=== PATIENT | male | born 1930 | race Caucasian/White ===

== ENCOUNTER → 2017-06-11 | Outpatient (CLI) | payer OTHER ==
[~2017-06-11] MED LIST: ASPI81CH2 PO; BISO5TAB3 PO; CHOL1000 PO; CLX/20 PO; DUTACAP PO; FLNIN/ NAE; LSX40 PO; SIMV-151 PO
[2017-06-11 08:54] LABS: BASO % 0.2 %; BASO ABS # 0.02 K/uL (0-0.2); COMPLETE YES; EOS % 3.4 %; HEMATOCRIT 47.7 % (42-52); IG% 0.3 %; LYMPH % 23.1 %; LYMPH ABS # 2.09 K/uL (1.2-3.4); MEAN CELL VOLUME 98.4 fL (80-100); MEAN CORPUSCULAR HEMOGLOBIN 31.8 pg (25-34); MEAN CORPUSCULAR HGB CONC 32.3 g/dl (32-36); MEAN PLATELET VOLUME 9.6 fL (7.4-10.4); MONO % 13.7 %; NEUT % 59.3 %; PLATELET COUNT 228 K/uL (130-400); RED BLOOD COUNT 4.85 M/uL (4.7-6.1); WHITE BLOOD COUNT 9.06 K/uL (4.8-10.8)
[2017-06-11 09:25] LABS: BLOOD UREA NITROGEN 20 mg/dl (7-18); BUN/CREATININE RATIO 21.1 (10-20); CALCIUM 8.7 mg/dl (8.5-10.1); CARBON DIOXIDE 32 mmol/L (21-32); CHLORIDE 102 mmol/L (98-107); CREATININE 0.94 mg/dl (0.60-1.40); GLUCOSE 102 mg/dl (70-99); SODIUM 139 mmol/L (136-145)
== END | disposition home or self-care (01) ==
LOC: C.LABOUTLO 08:26
PROVIDERS: ATTEND Internal Medicine
DX: I25.10 Atherosclerotic heart disease of native coronary artery without angina pectoris (principal)

== ENCOUNTER → 2017-10-20 | Outpatient (CLI) | payer OTHER ==
[~2017-10-20] MED LIST changes: -BISO5TAB3 PO; +COEN1CAP28 PO; +DOXY100C76 PO; +DUTA0.5C PO; -DUTACAP PO; +ERGO500037 PO; +HORS300C PO; +IMIQ1CRE5 TOP; -SIMV-151 PO; +SPIR25TA PO; +SULF800T23 PO; +TAMS0.4C38 PO; +VITACAP26
[2017-10-20 09:23] LABS: HEMATOCRIT 42.1 % (42-52); HEMOGLOBIN 13.6 g/dL (14.0-18.0); MEAN CELL VOLUME 94.4 fL (80-100); MEAN CORPUSCULAR HEMOGLOBIN 30.5 pg (25-34); MEAN CORPUSCULAR HGB CONC 32.3 g/dl (32-36); MEAN PLATELET VOLUME 9.8 fL (7.4-10.4); PLATELET COUNT 284 K/uL (130-400); RED CELL DISTRIBUTION WIDTH CV 13.2 % (11.5-14.5); RED CELL DISTRIBUTION WIDTH SD 45.8 fL (36.4-46.3); WHITE BLOOD COUNT 11.53 K/uL (4.8-10.8)
[2017-10-20 09:24] LABS: BLOOD UREA NITROGEN 15 mg/dl (7-18); CALCIUM 8.9 mg/dl (8.5-10.1); CARBON DIOXIDE 28 mmol/L (21-32); CREATININE 0.95 mg/dl (0.60-1.40); GLUCOSE 108 mg/dl (70-99); POTASSIUM 3.9 mmol/L (3.5-5.1); SODIUM 135 mmol/L (136-145)
== END | disposition home or self-care (01) ==
LOC: C.LABOUTLO 08:27
PROVIDERS: ATTEND Internal Medicine
DX: I10 Essential (primary) hypertension (principal); R60.9 Edema, unspecified

== ENCOUNTER 2018-01-27 13:59 | Emergency (ER) | payer OTHER ==
[~2018-01-27] VITALS: Ht 177.8 cm; Wt 107.0 kg
[2018-01-27 14:04] VITALS: Ht 177.8 cm; Wt 107.0 kg
[2018-01-27] MEDS ORDERED: OPTIRAY 320 IV PRN (14:30)
[2018-01-27 14:57] LABS: BASO % 0.2 %; BASO ABS # 0.03 K/uL (0-0.2); EOS % 3.6 %; EOS ABS # 0.54 K/uL (0-0.5); HEMATOCRIT 46.8 % (42-52); HEMOGLOBIN 15.5 g/dL (14.0-18.0); IG# 0.07 K/uL (0.00-0.02); LYMPH % 28.9 %; LYMPH ABS # 4.37 K/uL (1.2-3.4); MEAN CELL VOLUME 88.1 fL (80-100); MEAN CORPUSCULAR HEMOGLOBIN 29.2 pg (25-34); MEAN CORPUSCULAR HGB CONC 33.1 g/dl (32-36); MEAN PLATELET VOLUME 9.3 fL (7.4-10.4); MONO % 8.5 %; MONO ABS # 1.29 K/uL (0.11-0.59); NEUT % 58.3 %; PLATELET COUNT 296 K/uL (130-400); RED CELL DISTRIBUTION WIDTH CV 17.2 % (11.5-14.5); RED CELL DISTRIBUTION WIDTH SD 54.9 fL (36.4-46.3)
[2018-01-27] MEDS ORDERED: ALUM-30 PO (15:00)
[2018-01-27] MEDS ORDERED: KETO2GEL2 TOP (15:00)
[2018-01-27 15:07] LABS: PTT PATIENT 27.7 SECONDS (21.0-31.0)
[2018-01-27 15:24] LABS: ALBUMIN 2.8 gm/dl (3.4-5.0); ALT/SGPT 30 U/L (12-78); AST/SGOT 21 U/L (15-37); BLOOD UREA NITROGEN 21 mg/dl (7-18); CALCIUM 8.8 mg/dl (8.5-10.1); CARBON DIOXIDE 29 mmol/L (21-32); CREATININE 1.31 mg/dl (0.60-1.40); GLUCOSE 120 mg/dl (70-99); POTASSIUM 4.1 mmol/L (3.5-5.1); SODIUM 134 mmol/L (136-145)
[2018-01-27 15:26] LABS: ALKALINE PHOSPHATASE 100 U/L (45-117); TOTAL PROTEIN 8.8 gm/dl (6.4-8.2)
--- NOTE | 2018-01-27 16:10 | DIAGNOSTIC IMAGING REPORT ---
SOFT TISSUE NECK WITH CLINICAL HISTORY: 87 years-old Male presenting with right maxillary and right nasal swelling. h/o of cellulitis, CA. TECHNIQUE: Multidetector CT of the neck was performed after the administration of intravenous contrast. IV contrast: 117 mL of Optiray 320. A dose lowering technique was used consistent with the principles of ALARA (as low as reasonably achievable). COMPARISON: None. CT DOSE (mGy.cm): The estimated cumulative dose is 646.38 mGy.cm. FINDINGS: Site Auditor topogram: Median sternotomy wires noted. The patient is edentulous. 1.9 cm cystic lesion in the subcutaneous tissue of the left anterior neck. Soft tissue swelling and infiltration overlying the right aspect of the nares. There is a low-density ill-defined 1.8 cm collection in the superficial soft tissue of the right naris. There is extensive surrounding inflammatory change. There is no associated osseous erosion of the piriform aperture. Significant mucosal thickening in the left frontal sinus. No osseous sclerosis or erosion. Paranasal sinuses and mastoid air cells otherwise clear. Middle ears clear. Multiple teeth are absent with dental caries evident. Periapical lucency at the right maxillary lateral incisor. No suspicious nodular enhancement along the airway. Nasopharynx, oropharynx, hypopharynx, and larynx patent. Piriform sinuses and vallecula a symmetric. Amalgam with resulting streak artifact degrades evaluation of the oral cavity. Vasculature patent. Atherosclerosis noted without significant narrowing. No lymphadenopathy. Limited intracranial evaluation within normal limits. Advanced degenerative changes of the cervical spine with multilevel neural foraminal narrowing. Lung apices clear. IMPRESSION: 1. Early abscess formation in the subcutaneous tissue of the right nares. 2. No lymphadenopathy. 3. Left frontal sinus mucosal thickening, nonspecific. No CT evidence of acute or chronic sinusitis. 4. Endodontic and periodontal disease. 5. Cystic lesion in the superficial soft tissues of the left anterior neck. Since nonspecific and may represent an epidermal inclusion cyst/sebaceous cyst or lymphangioma. The superficial location suggests against a thyroglossal duct cyst. Electronically signed by: Jose Ramon Booth M.D. 01/27/2018 4:09 PM Dictated Date/Time: 01/27/2018 3:59 PM
[2018-01-27] MEDS ORDERED: LIDOCAINE/EPINEPHRINE 1% 20 ML VIAL INFIL ONE (16:45)
[2018-01-27] MEDS ORDERED: LIDO/EPINEPHRINE/SOD BICARB 20 ML VIAL ONE (17:14)
[2018-01-27] MEDS ORDERED: LIDOCAINE 1% BUFFERED INJ 5 ML VIAL INFIL ONE (17:15)
[2018-01-27] MEDS ORDERED: CLINDAMYCIN 600 MG/54 ML D5W IV ONE (17:45)
[2018-01-27] MEDS ORDERED: CLIN150C PO (18:17)
--- NOTE | 2018-01-27 18:35 | EMERGENCY ROOM VISIT NOTE ---
History Report prepared by Orlin: Gregg Jacobs Under the Supervision of: Dr. Nehemias Rodriguez M.D. First contact with patient: 14:06 Chief Complaint: FACIAL PAIN/INJURY Stated Complaint: EYE AND FACIAL INFECTION PER [facility] History of Present Illness The patient is an 87 year old male who presents to the Emergency Room with complaints of constant swelling of the right side of the face beginning earlier today. The patient was sent here from [facility] because the right side of his face was swollen. The patient's [id number] states she received a call today stating the patient has been experiencing pink eye for a while, and it was clearing up. She reports the nurses noticed the swelling today and sent him to the ED for evaluation. 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 The patient states he feels baseline. He reports the swelling in his legs is chronic, and he does not wear the wrappings like he is supposed to. He states he is having mild changes to the vision of his left eye. The patient notes he does take aspirin, but that is all for blood thinners. Pt denies LOC, headache, fevers, chills, diaphoresis, neck pain, chest pain, breathing difficulties, nausea, vomiting, abdominal pain, back pain, melena, hematochezia, urinary symptoms, numbness, weakness, lymphadenopathy, rash, hearing changes, changes in appetite, biting his tongue, or other complaints. Source of History: patient, family ([id number]) Onset: this morning Position: other (right side of the face) Quality: other (swelling) Timing: constant Review of Systems See HPI for pertinent positives and negatives. A total of ten systems were reviewed and were otherwise negative. Past Medical & Surgical Medical Problems: (1) Arthritis (2) Heart disease (3) High cholesterol (4) History of open heart surgery (5) Pneumonia (6) Squamous cell carcinoma Surgical Problems: (1) H/O knee surgery (2) History of back surgery (3) History of cholecystectomy Family History Cancer Heart disease Hypertension Social History Smoking Status: Never Smoker Alcohol Use: none Drug Use: none Marital Status: Housing Status: assisted living Occupation Status: retired Current/Historical Medications Scheduled Aspirin (Aspirin), 81 MG PO DAILY Cholecalciferol (Vitamin D3), 5,000 INTER.UNIT PO DAILY Citalopram (Citalopram Hydrobromide), 20 MG PO DAILY Clindamycin Hcl (Cleocin), 150 MG PO QID Coenzyme Q10 (Ubidecarenone) (Co Q10), 1 CAP PO TID Dutasteride (Avodart), 1 CAP PO DAILY Furosemide (Furosemide), 40 MG PO DAILY Horse [place]ons (Aesculus Hippo (Horse Lyons), PO BID Ketoconazole (Topical) (Xolegel), 1 APPLN TOP DAILY Tamsulosin Hcl (Flomax), 1 CAP PO DAILY Scheduled PRN Alum & Mag Hydrox-Simethicone (Mylanta), 30 ML PO Q4H PRN for Indigestion Miscellaneous Medications Spironolactone (Aldactone), 25 MG PO Vitamins C & E (Vitamin C) Allergies Coded Allergies: Penicillin V (Verified Allergy, Intermediate, RASH, 01/27/18) Physical Exam Vital Signs Date Time Temp Pulse Resp B/P (MAP) Pulse Ox O2 Delivery O2 Flow Rate FiO2 01/27/18 17:50 80 18 127/71 96 Room Air 01/27/18 15:59 90 18 147/70 98 Room Air 01/27/18 14:04 36.7 93 18 117/69 93 Room Air Physical Exam GENERAL: Awake, alert, well-appearing, in no distress HENT: Normocephalic, atraumatic. Moderate swelling to the right side of the nose and right orbital area. Swelling does partially occlude the right naris. No drainage from the right nasolacrimal duct or obvious swelling. Oropharynx shows poor dentition and bleeding form the right upper premolar, otherwise unremarkable. EYES: Minimal conjunctival injection of the right eye. Sclera non-icteric. NECK: Supple. No nuchal rigidity. FROM. Small subcutaneous mass in the left anterior neck. It appears consistent with a sebaceous cyst. RESPIRATORY: Clear to auscultation. No wheezes. No rales. Normal respiratory effort. CARDIAC: Mildly elevated but not tachycardic rate. Normal rhythm. No murmurs. No rubs. Extremities warm and well perfused. Pulses equal. No JVD. GI: Soft, non-distended. No tenderness to palpation. No rebound or guarding. No masses. RECTAL: Deferred. MUSCULOSKELETAL: Atraumatic. Chest examination reveals no tenderness. The back is symmetrical on inspection without obvious abnormality. There is no CVA tenderness to palpation. No joint edema. LOWER EXTREMITIES: Calves are equal size bilaterally and non-tender. No edema. No discoloration. NEURO: Normal sensorium. No sensory or motor deficits noted. SKIN: No rash or jaundice noted. Medical Decision & Procedures ER Provider Diagnostic Interpretation: Radiology results as stated below per my review and radiologist interpretation SOFT TISSUE NECK WITH CLINICAL HISTORY: 87 years-old Male presenting with right maxillary and right nasal swelling. h/o of cellulitis, CA. TECHNIQUE: Multidetector CT of the neck was performed after the administration of intravenous contrast. IV contrast: 117 mL of Optiray 320. A dose lowering technique was used consistent with the principles of ALARA (as low as reasonably achievable). COMPARISON: None. CT DOSE (mGy.cm): The estimated cumulative dose is 646.38 mGy.cm. FINDINGS: Class A Regional Truck Driver topogram: Median sternotomy wires noted. The patient is edentulous. 1.9 cm cystic lesion in the subcutaneous tissue of the left anterior neck. Soft tissue swelling and infiltration overlying the right aspect of the nares. There is a low-density ill-defined 1.8 cm collection in the superficial soft tissue of the right naris. There is extensive surrounding inflammatory change. There is no associated osseous erosion of the piriform aperture. Significant mucosal thickening in the left frontal sinus. No osseous sclerosis or erosion. Paranasal sinuses and mastoid air cells otherwise clear. Middle ears clear. Multiple teeth are absent with dental caries evident. Periapical lucency at the right maxillary lateral incisor. No suspicious nodular enhancement along the airway. Nasopharynx, oropharynx, hypopharynx, and larynx patent. Piriform sinuses and vallecula a symmetric. Amalgam with resulting streak artifact degrades evaluation of the oral cavity. Vasculature patent. Atherosclerosis noted without significant narrowing. No lymphadenopathy. Limited intracranial evaluation within normal limits. Advanced degenerative changes of the cervical spine with multilevel neural foraminal narrowing. Lung apices clear. IMPRESSION: 1. Early abscess formation in the subcutaneous tissue of the right nares. 2. No lymphadenopathy. 3. Left frontal sinus mucosal thickening, nonspecific. No CT evidence of acute or chronic sinusitis. 4. Endodontic and periodontal disease. 5. Cystic lesion in the superficial soft tissues of the left anterior neck. Since nonspecific and may represent an epidermal inclusion cyst/sebaceous cyst or lymphangioma. The superficial location suggests against a thyroglossal duct cyst. Electronically signed by: Jose Ramon Booth M.D. 01/27/2018 4:09 PM Dictated Date/Time: 01/27/2018 3:59 PM Laboratory Results 01/27/18 14:45 Red Blood Count 5.31, Mean Corpuscular Volume 88.1, Mean Corpuscular Hemoglobin 29.2, Mean Corpuscular Hemoglobin Concent 33.1, Mean Platelet Volume 9.3, Neutrophils (%) (Auto) 58.3, Lymphocytes (%) (Auto) 28.9, Monocytes (%) (Auto) 8.5, Eosinophils (%) (Auto) 3.6, Basophils (%) (Auto) 0.2, Neutrophils # (Auto) 8.80, Lymphocytes # (Auto) 4.37, Monocytes # (Auto) 1.29, Eosinophils # (Auto) 0.54, Basophils # (Auto) 0.03 01/27/18 14:45 Test 01/27/18 14:34 01/27/18 14:45 Urine Color YELLOW Urine Appearance CLEAR (CLEAR) Urine pH 6.0 (4.5-7.5) Urine Specific [place] 1.018 (1.000-1.030) Urine Protein NEG (NEG) Urine Glucose (UA) NEG (NEG) Urine Ketones NEG (NEG) Urine Occult Blood NEG (NEG) Urine Nitrite NEG (NEG) Urine Bilirubin NEG (NEG) Urine Urobilinogen NEG (NEG) Urine Leukocyte Esterase SMALL (NEG) Urine WBC (Auto) 1-5 /hpf (0-5) Urine RBC (Auto) 5-10 /hpf (0-4) Urine Hyaline Casts (Auto) 0 /lpf (0-5) Urine Epithelial Cells (Auto) 10-20 /lpf (0-5) Urine Bacteria (Auto) NEG (NEG) White Blood Count 15.10 K/uL (4.8-10.8) Red Blood Count 5.31 M/uL (4.7-6.1) Hemoglobin 15.5 g/dL (14.0-18.0) Hematocrit 46.8 % (42-52) Mean Corpuscular Volume 88.1 fL (80-100) Mean Corpuscular Hemoglobin 29.2 pg (25-34) Mean Corpuscular Hemoglobin Concent 33.1 g/dl (32-36) Platelet Count 296 K/uL (130-400) Mean Platelet Volume 9.3 fL (7.4-10.4) Neutrophils (%) (Auto) 58.3 % Lymphocytes (%) (Auto) 28.9 % Monocytes (%) (Auto) 8.5 % Eosinophils (%) (Auto) 3.6 % Basophils (%) (Auto) 0.2 % Neutrophils # (Auto) 8.80 K/uL (1.4-6.5) Lymphocytes # (Auto) 4.37 K/uL (1.2-3.4) Monocytes # (Auto) 1.29 K/uL (0.11-0.59) Eosinophils # (Auto) 0.54 K/uL (0-0.5) Basophils # (Auto) 0.03 K/uL (0-0.2) RDW Standard Deviation 54.9 fL (36.4-46.3) RDW Coefficient of Variation 17.2 % (11.5-14.5) Immature Granulocyte % (Auto) 0.5 % Immature Granulocyte # (Auto) 0.07 K/uL (0.00-0.02) Prothrombin Time 10.6 SECONDS (9.0-12.0) Prothromb Time International Ratio 1.0 (0.9-1.1) Activated Partial Thromboplast Time 27.7 SECONDS (21.0-31.0) Partial Thromboplastin Ratio 1.1 Anion Gap 7.0 mmol/L (3-11) Est Creatinine Clear Calc Drug Dose 47.7 ml/min Estimated GFR () 55.9 Estimated GFR (Non- 48.3 BUN/Creatinine Ratio 16.1 (10-20) Calcium Level 8.8 mg/dl (8.5-10.1) Total Bilirubin 0.3 mg/dl (0.2-1) Direct Bilirubin < 0.1 mg/dl (0-0.2) Aspartate Amino Transf (AST/SGOT) 21 U/L (15-37) Alanine Aminotransferase (ALT/SGPT) 30 U/L (12-78) Alkaline Phosphatase 100 U/L (45-117) Total Protein 8.8 gm/dl (6.4-8.2) Albumin 2.8 gm/dl (3.4-5.0) Laboratory results reviewed by me Medications Administered Medications (Trade) Dose Ordered Sig/Humberto Route Start Time Stop Time Status Last Admin Dose Admin Clindamycin Phosphate (Cleocin 600mg/ 54ml D5W) 600 mg ONE ONCE IV 01/27/18 17:45 01/27/18 17:46 DC 01/27/18 18:10 600 MG Procedure Incision & Drainage Indication: Abscess. Location: Right face Verbal consent was obtained after the risks and benefits were explained, including but not limited to bleeding, scarring, infection, pain, and bone/joint /nerve damage. At this time, the risks of the procedure are less than the risks of NOT performing the procedure. A time out was taken and the correct patient and site identified. The skin was prepped with betadine and a sterile field set. The wound was anesthetized with 1 ml of 1% lidocaine without epinephrine. The abscess cavity was entered with a number 11 blade and blood and yellow puss material expressed. Copious irrigation was performed using normal saline. The wound was explored for foreign bodies and none found. Debridement was not performed. Packing placed and a sterile dressing applied. Detailed wound care instructions and signs and symptoms of worsening infection reviewed with the patient. No complications and the patient tolerated the procedure well. ED Course 1410: The patient was evaluated in room B12B. A complete history and physical exam was performed. 1536: I reevaluated the patient and discussed his blood work. He is waiting to go to CT. 1643: I reevaluated the patient and discussed his CT scan. 1712: I performed an I&D on the patient. Please refer to the procedure note for more information. 1715: Ordered Lidocaine HCl 20ml INFIL 1745: Ordered Clindamycin Phosphate 600mg IV 1753: I reevaluated the patient and discussed his test results. 1702: I reevaluated the patient. Discussed results and discharge instructions: he verbalized understanding and agreement. The patient is ready for discharge. Medical Decision Prior records reviewed and summarized as above. Triage Nursing notes reviewed and agree them. Additional history obtained from the family. The patient's history was concerning for swelling and redness of the skin. Differential diagnosis: Etiologies such as cellulitis, necrotizing fasciitis, abscess, MRSA infection, dental infection, sinusitis, as well as others were entertained.. Physical examination: The physical examination was consistent with cellulitis and small abscess ER treatment provided: IV clindamycin Incision and drainage On reassessment the patient felt better. Diagnostics interpreted by me: The labs revealed [mild leukocytosis on CBC. Chemistry panel unremarkable. Culture pending. Imaging studies: Scan as above This appears to be isolated cellulitis and cellulitis and small abscess that did well with incision and drainage. Packing placed. The infection may be affecting the right upper tooth or possibly extending from the tooth. The family will have the patient see dentistry. They will call tomorrow. By the evaluation outlined above emergent etiologies such as necrotizing fasciitis, sinusitis, airway involvement, as well as others were deemed relatively unlikely. The patient and family were informed about the findings as listed above. All questions were answered and they were pleased with the treatment. Return instructions were outlined and the patient was discharged in stable condition. Outpatient prescription management: Clinical my Referral: The patient was referred back to his primary care physician for follow-up in 2 days for a recheck of the current condition. Medication Reconcilliation Current Medication List: was personally reviewed by me Blood Pressure Screening Patient's blood pressure: Normal blood pressure Blood pressure disposition: Did not require urgent referral Impression Primary Impression: Cellulitis and abscess of face Scribe Attestation The scribe's documentation has been prepared under my direction and personally reviewed by me in its entirety. I confirm that the note above accurately reflects all work, treatment, procedures, and medical decision making performed by me. Departure Information Dispostion Home / Self-Care Prescriptions Clindamycin Hcl (CLEOCIN) 150 Mg Cap 150 MG PO QID, #40 CAP Prov: Nehemias Rodriguez MD 01/27/18 [facility] HOME CARE DOCUMENTATION FORM, IMPORTANT VISIT INFORMATION Patient Instructions My [facility] Additional Instructions Clindamycin 150mg: Take two pills four times daily for 10 days for your infection. All antibiotics can cause diarrhea. If this occurs and you feel worse or it does not resolve in 1-2 days follow up with your doctor or return to the Emergency Department as this could be signs of serious underlying problems. Any medication can cause an allergic reaction, stop the pills immediately and return to the ER for rash, hives, breathing difficulties, or swelling. Acetaminophen(Tylenol) may be used for fever or pain. Use 1000mg every six hours as needed. Avoid using more than 4000mg in a 24 hour period. Warm compresses to the affected area 4 times daily for 15-20 minutes. Rest and drink plenty of fluids. Continue current medications. Return to the ER for severe pain, persistent fevers, spreading redness, or any worsening of your condition. Follow up with your primary physician within 1-2 days for a recheck of the current condition. Packing should be removed within 48 hours. Change the overlying dressing once daily.
[2018-01-27 19:30] VITALS: TEMP 36.7
[2018-01-27 19:43] VITALS: BP 132/74; PULSE 89; O2SAT 96
== END 2018-01-27 19:30 | disposition home or self-care (01) ==
LOC: C.EDB 14:01
DX: L03.211 Cellulitis of face (principal); L02.01 Cutaneous abscess of face; R22.1 Localized swelling, mass and lump, neck; I51.9 Heart disease, unspecified; Z79.82 Long term (current) use of aspirin; Z85.828 Personal history of other malignant neoplasm of skin; Z88.0 Allergy status to penicillin